=== PATIENT | female | born 1975 | race African-American/Black ===

== ENCOUNTER 2018-01-03 16:18 | Emergency (ER) | payer OTHER ==
[~2018-01-03] VITALS: Ht 160 cm; Wt 52.2 kg
[2018-01-03 16:18] VITALS: BP 122/76
[2018-01-03] MEDS ORDERED: Ketorolac 30mg Inj IV ONE (16:45)
[2018-01-03] MEDS ORDERED: Dexamethasone 4mg/ml vial IVP ONE (16:45)
[2018-01-03] MEDS ORDERED: Methocarbamol 750mg tab ORAL ONE (17:00)
--- NOTE | 2018-01-03 17:56 | Emergency Room Report ---
History of Present Illness General Chief Complaint: Back Pain-No Injury Source: Patient Present Illness HPI Patient's 42-year-old female presented after increased abdominal pain.The patient presented having increased low back spasms which began after she attempted to stand up from bending down. She had prior history of endometriosis which was diagnosed by laparoscopy. She denied any fever. She reported having the negative test yesterday. She reports being on her menses currently. Allergies: Coded Allergies: No Known Allergies (Unverified , 01/03/18) Patient History Past Medical History: see triage record Last Menstrual Period: 01/02/2018 Reviewed Nursing Documentation: PMH: Agreed; PSxH: Agreed Nursing Documentation-PMH Past Medical History: No History, Except For Review of Systems All Other Systems: negative except mentioned in HPI Physical Exam Vital Signs Date Time Temp Pulse Resp B/P (MAP) Pulse Ox O2 Delivery O2 Flow Rate FiO2 01/03/18 16:13 97.7 83 16 122/76 99 Room Air 97.7 Sp02 EP Interpretation: reviewed, normal General Appearance: normal inspection, well appearing, no apparent distress, alert, GCS 15 Head: atraumatic ENT: normal ENT inspection, hearing grossly normal, normal voice Neck: normal inspection, full range of motion, supple, no bony tend Respiratory: normal inspection, lungs clear, normal breath sounds, no respiratory distress, no retraction, no wheezing Cardiovascular #1: regular rate, rhythm, no edema Gastrointestinal: normal inspection, normal bowel sounds, non tender, soft, no guarding, no hernia Genitourinary: no CVA tenderness Musculoskeletal: normal inspection, back normal, normal range of motion Neurologic: normal inspection, alert, oriented x3, responsive, 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 Differential diagnosis included but was not limited to herniated disc, cauda equina syndrome, abdominal aortic aneurysm, perforated ulcer, spinal epidural abscess, spinal stenosis, lumbar fracture, metastatic lesion, pyelonephritis Because of complexity of patient's case laboratory testing and imaging studies were ordered. The pelvic ultrasound showed no evidence of free fluid or ovarian torsion. The CT imaging read by radiologist showed broad-based disc bulge at L4-L5 as well as L5-S1. The patient was noted to have difficulty with ambulation. Patient given IV pain medications as well as Robaxin and Decadron.Urinalysis showed no evidence of infection.Patient was discussed with Dr. Adamson. Patient was transferred [facility]. Labs Test 01/03/18 18:32 Urine Color Yellow Urine Appearance Slightly cloudy Urine pH 6 (4.5-8.0) Urine Specific [place] 1.020 (1.005-1.035) Urine Protein 2+ (NEGATIVE) Urine Glucose (UA) Negative (NEGATIVE) Urine Ketones 1+ (NEGATIVE) Urine Occult Blood 5+ (NEGATIVE) Urine Nitrite Negative (NEGATIVE) Urine Bilirubin Negative (NEGATIVE) Urine Urobilinogen 1 MG/DL (0.0-1.0) Urine Leukocyte Esterase 1+ (NEGATIVE) Urine RBC 30-40 /HPF (0 - 2) Urine WBC 0-2 /HPF (0 - 2) Urine Squamous Epithelial Cells Few /LPF (NONE/OCC) Urine Bacteria Few /HPF (NONE) Urine Mucus Few /LPF (NONE/OCC) Urine HCG, Qualitative Negative (NEGATIVE) Urine Opiates Screen Positive (NEGATIVE) Urine Barbiturates Screen Negative (NEGATIVE) Phencyclidine (PCP) Screen Negative (NEGATIVE) Urine Amphetamines Screen Negative (NEGATIVE) Urine Benzodiazepines Screen Negative (NEGATIVE) Urine Cocaine Screen Negative (NEGATIVE) Urine Marijuana (THC) Screen Negative (NEGATIVE) EKG Diagnostic Results Rate: normal Rhythm: NSR ST Segments: no acute changes Rhythm Strip Diag. Results EP Interpretation: yes Rhythm: NSR, no PVC's, no ectopy Last Vital Signs Date Time Temp Pulse Resp B/P (MAP) Pulse Ox O2 Delivery O2 Flow Rate FiO2 01/03/18 16:18 97.7 82 16 122/76 99 Room Air 97.7 Status: unchanged Disposition: XFER SHT-TRM HOSP Condition: Serious Fabian Fernandez Jan 03, 2018 17:56
[2018-01-03] MEDS ORDERED: Morphine Sulfate 4mg/ml Inj IVP ONE ×2 (18:15→19:45)
[2018-01-03 18:36] VITALS: BP 129/78
[2018-01-03 18:42] LABS: APPEARANCE,URINE SLIGHTLY CLOUDY; BILIRUBIN, URINE NEGATIVE (NEGATIVE); GLUCOSE, URINE (UA) NEGATIVE (NEGATIVE); KETONES,URINE 1+ (NEGATIVE); LEUKOCYTE ESTERASE ,URINE 1+ (NEGATIVE); NITRITE,URINE NEGATIVE (NEGATIVE); PH,URINE 6 (4.5-8.0); PROTEIN,URINE 2+ (NEGATIVE); UROBILINOGEN,URINE 1 MG/DL (0.0-1.0)
[2018-01-03 18:43] LABS: COLOR,URINE YELLOW
[2018-01-03 21:32] VITALS: BP 129/78
--- NOTE | 2018-01-04 08:44 | Diagnostic Imaging Report ---
Indication: Pelvic pain Technique: Transabdominal and transvaginal images Comparison: none Findings: Uterus is retroverted. It measures 7.1 cm length by 5.4 cm AP. Endometrium measures 3 mm thick. 6 x 10 mm hypoechoic focus in the myometrium probably represents a small fibroid. Right ovary measures 2.2 cm in length. Left ovary measures 3.1 cm in length. No adnexal mass. There is a small cervical nabothian cyst. No free cul-de-sac fluid Impression: Small uterine fibroid. Otherwise unremarkable exam
--- NOTE | 2018-01-04 09:29 | Diagnostic Imaging Report ---
Indications: Pain Technique: Spiral acquisitions obtained through the lumbar spine. Multiplanar reconstructions were generated. No IV contrast utilized. Total dose length product 329.12 mGycm. CTDIvol(s) 10.29 mGy. Dose reduction achieved using automated exposure control Comparison: none Findings: But alignment is normal. Vertebral body heights are preserved. The disc spaces are preserved. No acute fractures. No dislocations. At L4-5 and L5-S1, there is broad-based central posterior disc protrusion which indents the anterior aspect of the thecal sac but does not significantly narrow the spinal canal or compromise the lateral recesses. The neural foramina are preserved. At the remaining disc levels, no significant disc bulge or protrusion, spinal stenosis, or neural foraminal narrowing. The included extraspinal soft tissues are unremarkable. Impression: No acute abnormality Minimal degenerative changes as detailed above The CT scanner at [facility] is accredited by the [employer] and the scans are performed using protocols designed to limit radiation exposure to as low as reasonably achievable to attain images of sufficient resolution adequate for diagnostic evaluation.
== END 2018-01-03 21:34 | disposition short-term general hospital (02) ==
LOC: EDBD 16:18 → EMR 16:50
DX: M51.26 Other intervertebral disc displacement, lumbar region (principal); D25.9 Leiomyoma of uterus, unspecified; N88.8 Other specified noninflammatory disorders of cervix uteri
CPT/HCPCS: 72131; 76830; 76856; 80307; 81003; 81025; 96374; 96375; 99285; J1100; J1885; J2270